=== PATIENT | female | born 1985 | race Caucasian/White ===

== ENCOUNTER 2024-10-02 09:45 | Inpatient (IN) | payer SELFPAY ==
[2024-10-02] VITALS (35 sets, daily range): BP systolic 156–226; BP diastolic 104–158; PULSE 85–133; RESP 8–33; TEMP 36.6–36.9; O2SAT 94–100; BMI 30.3
--- NOTE | 2024-10-02 10:10 | EKG_ITS ---
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
--- NOTE | 2024-10-02 10:10 | EDRME_ITS ---
Rapid Medical Screening Exam [facility] Arrival date/time: 10/02/24 09:45 CC: Hypertension HPI ongoing for years but has never taken any medication consistently forward last time she remembers she took hydrochlorothiazide low- dose intermittently. Patient denies headache blurred vision floaters seeing spots nausea vomiting shortness of breath or chest pain. Chief Complaint: General Adult/Misc Complain Time Seen by Provider: 10/02/24 10:05
[2024-10-02 10:51] LABS: Basophils # (Auto) 0.0 Thou/mm3 (0.0-0.2); Basophils % (Auto) 0 % (0-2.5); Eosinophils # (Auto) 0.0 Thou/mm3 (0.0-0.5); Eosinophils % (Auto) 0 % (0-10); Hematocrit 48.9 % (36.0-46.0); Hemoglobin 16.7 g/dL (12.0-16.0); Immature Granulocytes Auto 0.02 Thou/mm3 (0.00-0.00); Lymphocytes # (Auto) 1.9 Thou/mm3 (1.0-4.8); Lymphocytes % (Auto) 18 % (10-50); Mean Corpuscular HGB Conc 34.2 g/dl (31.0-37.0); Mean Corpuscular Hemoglobin 29.0 pg (25.0-35.0); Mean Corpuscular Volume 85 fL (80-100); Monocytes # (Auto) 0.4 Thou/mm3 (0.0-0.8); Monocytes % (Auto) 4 % (0-12); Neutrophils # (Auto) 8.0 Thou/mm3 (1.8-7.7); Neutrophils % (Auto) 77 % (37-80); Nucleated Red Blood Cell # 0.00 Thou/mm3 (0.00-0.00); Nucleated Red Blood Cell % 0 /100 WBC (0); Platelet Count 337 Thou/mm3 (140-440); RDW Standard Deviation 37.7 fL (36.4-46.3); Red Blood Count 5.76 Miln/mm3 (4.00-5.20); White Blood Count 10.3 Thou/mm3 (3.6-11.0)
[2024-10-02 11:02] LABS: INR 1.0 (0.9-1.3); Partial Thromboplastin Time 27.0 Seconds (22.0-36.0); Prothrombin Time 11.4 Seconds (9.0-12.2)
[2024-10-02 11:04] LABS: Collection Type, Urine Clean Catch
[2024-10-02 11:07] LABS: Alanine Aminotransferase 25 U/L (10-49); Albumin, Serum 5.3 gm/dL (3.5-5.0); Albumin/Globulin Ratio 1.8 (1.2-2.2); Alkaline Phosphatase 56 U/L (46-116); Anion Gap 11 (7-16); Aspartate Amino Transferase 23 U/L (0-34); BUN/Creatinine Ratio 9 Ratio (12-20); Bilirubin,Total 0.5 mg/dL (0.3-1.2); Blood Urea Nitrogen 7 mg/dL (9-23); Calcium 10.4 mg/dL (8.3-10.6); Calcium (Corrected) 10.4 mg/dL (8.5-10.1); Carbon Dioxide 24.6 mMol/L (20.0-31.0); Chloride 100 mMol/L (98-107); Creatinine (Component) 0.8 mg/dL (0.6-1.3); Estimated Creatinine Clearance 102.8 mL/min (>60); Globulin 2.9 gm/dL (2.3-3.5); Glucose 132 mg/dL (74-106); LDH (Lactate Dehydrogenase) 207 U/L (120-246); Magnesium 2.0 mg/dL (1.6-2.6); Osmolality,Calculated 271 (275-295); Potassium 3.6 mMol/L (3.4-5.1); Sodium 136 mMol/L (136-145); Total Protein 8.2 gm/dL (5.7-8.2); Troponin I < 0.020 ng/mL (0.0-0.045); eGFR > 60 See Note
[2024-10-02 11:16] LABS: B-Type Natriuretic Peptide 26 pg/mL (0-100)
[2024-10-02 11:18] LABS: Bilirubin,Urine Negative (Negative); Blood,Urine 3+ (Negative); Clarity,Urine Turbid (Clear/Hazy); Color,Urine Yellow (Lt Yel-Yel); Glucose, Urine Trace (Negative); Hyaline Casts,Urine 1 /hpf (0-1); Ketones,Urine 1+ (Negative); Leukocyte Esterase,Urine Negative (Negative); Nitrite,Urine Negative (Negative); PH,Urine 5.5 (5.0-7.0); Protein,Urine 1+ (Neg - Trace); RBC,Urine 698 /hpf (0-3); Specific Gravity,Urine 1.029 (1.001-1.035); Squamous Epithelial Cell,Urine 3 /hpf (0-5); Urobilinogen,Urine Negative mg/dL (0.0-1.0); WBC,Urine 5 /hpf (0-5)
[2024-10-02 11:47] LABS: Amphetamine/Methamp Scrn,U Negative (Negative); Barbiturate Screen,Urine Negative (Negative); Benzodiazepines Screen,Urine Negative (Negative); Benzoylecgonine Screen, Ur Negative (Negative); Fentanyl Screen,Urine Positive (Negative); Opiate Screen,Urine Negative (Negative); THC Screen,Urine Negative (Negative)
--- NOTE | 2024-10-02 15:28 | PD.EDADULT ---
ED General RME/HPI General Chief complaint: General Adult/Misc Complain Stated complaint: HIGH BLOOD PRESSURE Time Seen by Provider: 10/02/24 10:05 Arrival date/time: 10/02/24 09:45 RME / HPI RME / HPI narrative: 10/02/24 09:45 CC: Hypertension HPI ongoing for years but has never taken any medication consistently forward last time she remembers she took hydrochlorothiazide low-dose intermittently. Patient denies headache blurred vision floaters seeing spots nausea vomiting shortness of breath or chest pain. 39-year-old female with no relevant past medical history comes into the ED with chief complaint of high blood pressure. Patient states that she has had blood pressure in the past and every time that she goes to the dentist they told her that she has high blood pressure. Patient states that she has not seen a primary care physician in about 10 years and that she was recently prescribed nifedipine ER 30 mg which she had not been taking previously. She mention also that she took 1 dose of the nifedipine yesterday when her blood pressure was high, but it did not help. She also mentioned that at the house her blood pressure ranges in 150s over 90s to 100. She denies having any chest pain, shortness of breath, unintentional weight loss, weight gain, fevers, chills, diarrhea, burning sensation urination, headaches, visual disturbances, or heat or cold intolerance. Patient does state that she has a family history of thyroid issues including her sister and mother. Admits smoking (trying to quit), denies any alcohol Initially denied having any drug use, but UA did come back positive for fentanyl and went spoke again with patient she did reveal that she had been having substance issues and she has been taking fentanyl, unprescribed, but is trying to quit and would like to seek help. Related Data Previous Rx's ?Medication ?Instructions ?Recorded ciprofloxacin HCl 500 mg tablet 500 mg PO BID #14 tabs 07/11/23 (Cipro) nifedipine 30 mg tablet,extended 30 mg PO QDAY #30 tabs 07/11/23 release 24 hr (Procardia XL) Allergies Allergy/AdvReac Type Severity Reaction Status Date / Time Penicillins Allergy Mild Rash Verified 10/02/24 09:46 povidone Allergy Mild BLISTERS Verified 10/02/24 09:46 Review of Systems Review of Systems Systems Reviewed: All systems reviewed, normal except as documented Past Medical History Past Medical History Comments PMH COMMENT: PMH: None Social Hx: Admits smoking, fentanyl use, denies any alcohol FMH: Thyroid issues in mother and sister ED Exam Narrative Physical exam: Gen: A&O X 3, NAD HEENT: NCAT, EOMI, Pupils reactive GABRIEL, not icteric. External ears normal. No rhinorrhea. Moist mucous membranes. Neck: Supple, full range of motion, no observable masses, No meningeal sign. Lungs: No Respiratory distress, clear bilateral. CV: RRR, no murmurs. Abdomen: Soft, nondistended, No rebound tenderness. MSK: No joint swelling, no redness, peripheral pulses presents, lumbar with no edema. Skin: No rashes, petechiae, lesions.. Neuro: No focal neurological deficits appreciated, sensory and motor intact. Psych: Cooperative, appropriate mood and effect, but anxious appearing Course Quality Measures none Orders Category Date Time Status COVID-19 Screening Questionnaire NOW Care 10/02/24 18:31 Active Hot Packer Q4H START 00 Care 10/02/24 15:40 Active Continuous Pulse Oximetry NOW Care 10/02/24 15:40 Completed Decision to Admit X1 Care 10/02/24 18:31 Active EKG (ED ONLY) *Do not use* NOW Care 10/02/24 10:10 Completed EKG (ED Only) Stat Exams 10/02/24 10:10 Draft B-Type Natriuretic Peptide Stat Lab 10/02/24 10:37 Completed CBC Stat Lab 10/02/24 10:37 Completed Comprehensive Metabolic Panel Stat Lab 10/02/24 10:37 Completed Drug Screen,Urine Stat Lab 10/02/24 10:53 Completed Free T4 (Free Thyroxine) Stat Lab 10/02/24 15:03 Completed LDH (Lactate Dehydrogenase) Stat Lab 10/02/24 10:37 Completed Magnesium Stat Lab 10/02/24 10:37 Completed Partial Thromboplastin Time Stat Lab 10/02/24 10:37 Completed Prothrombin Time with INR Stat Lab 10/02/24 10:37 Completed Thyroid Stimulating Hormone Stat Lab 10/02/24 15:03 Completed Troponin I Stat Lab 10/02/24 10:37 Completed UA [Urinalysis] Stat Lab 10/02/24 16:05 Completed Urinalysis Stat Lab 10/02/24 10:53 Completed Labetalol IV [Trandate IV] Med 10/02/24 16:14 Discontinued 15 mg IVP X1 ONE Labetalol IV [Trandate IV] Med 10/02/24 16:56 Discontinued 20 mg IVP X1 ONE Labetalol IV [Trandate IV] Med 10/02/24 15:39 Discontinued 5 mg IVP X1 ONE Nicardipine/Ns 20Mg Ivpb [Cardene Ivpb] Med 10/02/24 18:30 Active 20 mg in 200 ml IV 5 mg/hr Sodium Chloride 0.9% 1000 ml [Ns] 1,000 ml Med 10/02/24 16:21 Discontinued IV 999 mls/hr cloNIDine HCL [Catapres] Med 10/02/24 18:30 Discontinued 0.1 mg PO X1 ONE Referral Sales And Service Agent NOW SS 10/02/24 15:40 Active Vital Signs Vital signs: Vital Signs Temperature 98.0 F 10/02/24 10:13 Pulse Rate 99 10/02/24 10:13 Respiratory Rate 19 10/02/24 10:13 Blood Pressure 218/113 H 10/02/24 10:13 Pulse Oximetry (%) 98 10/02/24 10:13 Oxygen Delivery Method Room Air 10/02/24 10:13 Discharge Plan Plan Patient Disposition: Admit Acute Care w/in Hospital Prescriptions/Referrals Prescriptions/Med Rec: No Action ciprofloxacin HCl [Cipro] 500 mg tablet 500 mg PO BID Qty: 14 0RF nifedipine [Procardia XL] 30 mg tablet extended release 24hr 30 mg PO QDAY Qty: 30 0RF Referrals: Medardo Don MD [Primary Care Provider] - In 1 week Problem List Clinical Impression: Hypertensive urgency Patient/Caregiver Discharge Instructions Print Language: Chinese Stand Alone Forms: Margarita Award Info., Patient Portal Info Letter MD Attestation Attestation I, Moni Lowry MD, have reviewed the history, exam, and assessment of the patient. I have evaluated the patient independently and agree with the plan of care documented by [Dr. Veliz]. All diagnostic studies were reviewed and discussed. I confirm the diagnosis as documented by the Resident. I was present during the Medical Decision Making for this patient. The patient's plan of care was created between myself and the Resident and consistent with our discussion of the patient's case. MDM Narrative [facility] hospital course: Patient was seen evaluated upon arrival by myself. Diagnostic labs and imaging were reviewed. Patient's blood work was fairly unremarkable except for the UA that was positive for RBCs, but patient is currently on menstrual period. Patient's U tox was also positive for fentanyl. Patient stated that she would like resources to help with her substance use therefore referred to social media intern. Gave labetalol IV 5 mg x 1 for blood pressure. Ordered initially labetalol 5 mg IV x 1 which did not lower patient's blood pressure then ordered 15 labetalol IV x 1 and patient's blood pressure still remain in the 230s or 120s. Patient remained asymptomatic, but given her high blood pressure again repeated a dose of labetalol 20 mg x 1. 18: 30: Spoke with ICU for need of nicardipine drip as BP still in the 210s over 110s and admission for ICU. ICU languages and literature instructor will see the patient for admission. Will start nicardipine drip with a goal of 180 systolic blood pressure for now and clonidine 0.1 p.o. x 1 as per ICU languages and literature instructor. Case disclosed with Attending Dr. Alen Curtis PGY Disclaimer: Even though this this note was dictated by speech recognition and even though it was carefully revised there may still be minor errors in lining stuffer due to voice recognition software. Medication Administration(s) Medication Administration History Nicardipine/Sodium Chloride (Cardene Ivpb) 20 mg in 200 mls @ 50 mls/hr IV .Q4H PRN; Protocol PRN Reason: PER PROTOCOL Stop: 11/01/24 18:29 Discontinued Medications Clonidine (Clonidine Hcl 0.1 Mg Tablet) 0.1 mg PO X1 ONE Stop: 10/02/24 18:31 Sodium Chloride (Ns) 1,000 mls @ 999 mls/hr IV .Q1H1M ONE Stop: 10/02/24 17:21 Last Admin: 10/02/24 16:24 Dose: Not Given Documented By: GM Non-Admin Reason: Cancelled by Provider Labetalol HCl (Labetalol Inj 5 Mg/Ml Vial 20 Ml) 5 mg IVP X1 ONE Stop: 10/02/24 15:40 Last Admin: 10/02/24 15:50 Dose: 5 mg Documented By: Labetalol HCl (Labetalol Inj 5 Mg/Ml Vial 20 Ml) 15 mg IVP X1 ONE Stop: 10/02/24 16:15 Last Admin: 10/02/24 16:27 Dose: 15 mg Documented By: HARDEEP Comments: CLARIFIED WITH DR. VELIZ ON DOSE Labetalol HCl (Labetalol Inj 5 Mg/Ml Vial 20 Ml) 20 mg IVP X1 ONE Stop: 10/02/24 16:57 Last Admin: 10/02/24 17:32 Dose: 20 mg Documented By: HARDEEP
[2024-10-02] MEDS: LABETALOL INJ 5 MG/ML VIAL 20 ML IVP (15:50)
[2024-10-02 15:57] LABS: Free T4 (Free Thyroxine) 1.33 ng/dL (0.89-1.76); Thyroid Stimulating Hormone 0.79 uIU/mL (0.55-4.78)
[2024-10-02 16:25] LABS: Collection Type, Urine Voided
[2024-10-02] MEDS: LABETALOL INJ 5 MG/ML VIAL 20 ML 15 MG IVP (16:27)
--- NOTE | 2024-10-02 16:31 | PC.NURSE ---
PT GIVEN 1L OF WATER VIA WATER CONTAINER CUP, PER DR. VELIZ.
[2024-10-02 16:43] LABS: Bacteria,Urine Rare; Bilirubin,Urine Negative (Negative); Blood,Urine 3+ (Negative); Clarity,Urine Clear (Clear/Hazy); Glucose, Urine Negative (Negative); Ketones,Urine 1+ (Negative); Leukocyte Esterase,Urine Positive (Negative); Nitrite,Urine Negative (Negative); PH,Urine 6.0 (5.0-7.0); Protein,Urine Trace (Neg - Trace); RBC,Urine 711 /hpf (0-3); Specific Gravity,Urine 1.016 (1.001-1.035); Squamous Epithelial Cell,Urine 3 /hpf (0-5); Urobilinogen,Urine Negative mg/dL (0.0-1.0); WBC,Urine 20 /hpf (0-5)
[2024-10-02 16:47] LABS: Color,Urine Lt-Orange (Lt Yel-Yel)
[2024-10-02] MEDS: LABETALOL INJ 5 MG/ML VIAL 20 ML 20 MG IVP (17:32)
--- NOTE | 2024-10-02 18:03 | PC.CC ---
ED Interpreter received referral for Pt requesting resources for substance abuse treatment. Family Resource Specialist engaged Pt at bedside and provide local community substance abuse resources and education for Pt. ED physician was notified and updated.
--- NOTE | 2024-10-02 19:09 | PC.CC ---
Moni Jalloh is a 39-year-old female admitted for High Blood Pressure. In House Counsel made contact with Pt at bedside to complete initial and discuss discharge disposition. Role and reason for the contact was explained to Pt. Demographic information was verified. Pt identified her Mother Tricia Jalloh [phone] as surrogate decision maker. Pt is independent with all ADLs and no DME. Pt?[facility] [place] [facility] [address] . PCP is JOEY. At time of discharge patient will return home, family will provide transportation. Pt reports wanting substance abuse support. Discharge Plan: Home Next of Kin: Mother Tricia Jalloh [phone] PCP: JOEY
[2024-10-02] MEDS: NICARDIPINE/NS 20MG IVPB 20 MG/200 ML BAG 50 MG IV (19:18)
--- NOTE | 2024-10-02 20:51 | ESHP_ITS ---
<Statement entered by Hugh Wood MD - 10/03/24 07:48> I have discussed and was present for the essential components of the history, physical examination, diagnosis, and treatment plan with the resident. I agree with the patient's care as documented by the resident and amended herein by me. Hugh Wood MD FACP. Documentation for date of: 10/02/24 HPI History of Present Illness Chief complaint: Elevated BP History of present illness: Patient is a 39-year-old female with past medical history significant for uncontrolled hypertension complaining of elevated blood pressure and heart rate in the 120s since early this morning. Patient states that she took nifedipine 30 mg for the first time at 2:30 PM on 10/01/2024, and immediately turned red and felt hot. Patient states that she took the nifedipine at 2:30 PM when her blood pressure was 200/110, but immediately dropped her blood pressure to 158/86. Patient denied feeling dizzy, having any headaches, nosebleeds, blurry vision or any loss of vision, chest pain, shortness of breath, weakness or difficulty speaking. Patient is currently on her period has any other urinary frequency or symptoms. In addition, patient takes fentanyl for about 2 years, however has been trying to self wean. Patient takes 6 small pills daily for the last 2 years, however did decrease to 1 pill over the last 4 to 6 weeks. Patient has not seen a primary care doctor over the last 10 years. Patient's blood pressure range usually is 158-164 over 90s to 100s. Patient's last meal was yesterday at dinner, and had an apple at 10 AM this morning. Of note, patient does get dizzy and premenstrual cramps during her ovulation 2 weeks ago, and felt more dizzy than usual this month than usual. Patient was on Vicodin as needed for her right ankle surgeries, and would use it occasionally to help her sleep, however could not wean off of the Vicodin, and started taking fentanyl daily for the last 2 years. ED course: Patient was given IV 40 mg of hydralazine, and clonidine 0.1 mg p.o. UA positive for leukocyte esterase, 3+ blood and 1+ ketones, however patient is on her menstrual period. Patient was started on IV nicardipine drip and admitted to ICU for further management. Review of Systems Review of Systems Systems Reviewed: All systems reviewed, normal except as documented Past Medical History Past Medical History Comments PMH COMMENT: Past medical history: Uncontrolled hypertension Past surgical history: 2 right ankle surgeries x 5 years ago Social history: Patient smokes about 1 pack every 3 days for the last 8 years, about 2.52 pack years, however has been trying to wean down, currently on 5 cigarettes over the last 2 weeks, denies any alcohol use history Allergies: Penicillin and Betadine, patient gets rashes immediately after Medications: First time she took nifedipine was yesterday at 2:30 PM, 10/01/2024, and has been taking fentanyl, self-medicating, currently 1 small pill daily Family history: Patient's grandfather had a heart attack in his 60s and cancer. Denies any diabetes or strokes Exam Vital Signs Temp Pulse Resp BP Pulse Ox O2 Del Method 98.4 F 96 13 203/156 H 99 Room Air 10/02/24 18:33 10/02/24 19:28 10/02/24 18:33 10/02/24 19:28 10/02/24 18:33 10/02/24 18:33 Narrative Exam General Appearance: Pt in NAD laying comfortably in bed. Patient appears flushed in her cheeks and upper neck. HEENT: NC/AT, no scleral icterus, no conjunctival pallor, MMM Lungs: CTAB, no wheezes or crackles appreciated CVS: Tachycardic, S1/S2 heard, no murmurs or rubs appreciated ABD: Soft, non-tender, non-distended, BS + in all 4 quadrants EXT: no deformity/edema/lesions/cyanosis/clubbing, radial pulses 2+ BL, DP pulses 2 + BL, except for old right ankle scars SKIN: Skin exam normal without any rashes. Neuro: A&O x 3. No gross neurological deficits. Motor and sensory grossly intact in B/L UL and LL. Psych: Appropriate mood and affect Results: Labs 10/02/24 10:37 10/02/24 10:37 Labs: Short CBC 10/02/24 Range/Units 10:37 WBC 10.3 (3.6-11.0) Thou/mm3 Hgb 16.7 H (12.0-16.0) g/dL Hct 48.9 H (36.0-46.0) % Plt Count 337 (140-440) Thou/mm3 BMP 10/02/24 10:37 Sodium 136 Potassium 3.6 Chloride 100 Carbon Dioxide 24.6 BUN 7 L Creatinine 0.8 Glucose 132 H Calcium 10.4 Cardiac Enzymes 10/02/24 Range/Units 10:37 Troponin I < 0.020 (0.0-0.045) ng/mL Liver Function 10/02/24 Range/Units 10:37 Total Bilirubin 0.5 (0.3-1.2) mg/dL AST 23 (0-34) U/L ALT 25 (10-49) U/L Alkaline Phosphatase 56 (46-116) U/L Albumin 5.3 H (3.5-5.0) gm/dL Urine 10/02/24 10/02/24 Range/Units 10:53 16:05 Urine Color Yellow Lt-[place] A (Lt Yel-Yel) Urine Clarity Turbid A Clear (Clear/Hazy) Urine pH 5.5 6.0 (5.0-7.0) Ur Specific [place] 1.029 1.016 (1.001-1.035) Urine Protein 1+ A Trace (Neg - Trace) Urine Glucose (UA) Trace Negative (Negative) Quality Measures Quality Measures none Medications Home Medications and Allergies Allergies Allergy/AdvReac Type Severity Reaction Status Date / Time Penicillins Allergy Mild Rash Verified 10/02/24 09:46 povidone Allergy Mild BLISTERS Verified 10/02/24 09:46 Visit Medications Acetaminophen (Acetaminophen 325 Mg Tablet) 650 mg PO Q6H PRN PRN Reason: Fever >100.4 or Pain 1-3 Stop: 11/01/24 20:42 Heparin Sodium (Porcine) (Heparin Sod Inj 5000 Unit/Ml Vial) 5,000 unit SC Q8HR [facility] Stop: 10/16/24 21:59 Nicardipine/Sodium Chloride (Cardene Ivpb) 20 mg in 200 mls @ 50 mls/hr IV .Q4H PRN; Protocol PRN Reason: PER PROTOCOL Stop: 11/01/24 18:29 Last Titration: 10/02/24 20:17 Dose: 2.5 mg/hr, 25 mls/hr Ondansetron HCl (Ondansetron Inj 2 Mg/Ml Inj 2 Ml) 4 mg IVP Q6H PRN; Protocol PRN Reason: NAUSEA OR VOMITING Stop: 11/01/24 20:42 Discontinued Medications Clonidine (Clonidine Hcl 0.1 Mg Tablet) 0.1 mg PO X1 ONE Stop: 10/02/24 18:31 Last Admin: 10/02/24 19:28 Dose: 0.1 mg Sodium Chloride (Ns) 1,000 mls @ 999 mls/hr IV .Q1H1M ONE Stop: 10/02/24 17:21 Last Admin: 10/02/24 16:24 Dose: Not Given Labetalol HCl (Labetalol Inj 5 Mg/Ml Vial 20 Ml) 5 mg IVP X1 ONE Stop: 10/02/24 15:40 Last Admin: 10/02/24 15:50 Dose: 5 mg Labetalol HCl (Labetalol Inj 5 Mg/Ml Vial 20 Ml) 15 mg IVP X1 ONE Stop: 10/02/24 16:15 Last Admin: 10/02/24 16:27 Dose: 15 mg Labetalol HCl (Labetalol Inj 5 Mg/Ml Vial 20 Ml) 20 mg IVP X1 ONE Stop: 10/02/24 16:57 Last Admin: 10/02/24 17:32 Dose: 20 mg Assessment & Plan Plan Patient is a 39-year-old female with past medical history significant for uncontrolled hypertension coming in with elevated blood pressure and admitted for hypertensive urgency. NEURO No active issues CARDIO #Hypertensive urgency Patient presented with a blood pressure of 218/113. Patient was given IV 40 labetalol and clonidine 0.1 p.o. x 1 with now significant improvement in blood pressure. Patient is on home nifedipine, but only has taken it once, on 10/01/2024. Patient denies any symptoms of headache, chest pain, dizziness, blurry vision, suggesting no signs of endorgan damage. Patient also has been self weaning with fentanyl pills, used to take small pills, down to 1 small pill in the last 6 weeks. Patient states that her flushing since taking her nifedipine dose yesterday morning has resolved. Patient does have baseline redness in her cheeks and neck. ? Nicardipine drip, with goal systolic blood pressure of 180, with MAP around 100-110 in the next 24 hours, until 10AM tmw, 10/03/24 ? Transition to to p.o. meds in a.m. if systolic blood pressure is well under goal of 180 ? Patient would benefit from home antihypertensives such as LALO inhibitor/ARB's and strongly outpatient follow-up with primary care doctor ? 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 Patient is currently taking fentanyl daily, and last dose was this morning at 10:00. UA positive for fentanyl. ? Patient would benefit from rehab status postdischarge to help with resources and medication for withdrawal symptoms ? Monitor for any opiate withdrawal symptoms Health Maintenance: DVT prophylaxis: Heparin SC Diet: Cardiac Velazquez: No Lines: PIV Drips: Nicardipine, currently turned off CODE STATUS: Full code Disposition: Admitted to ICU for HTN urgency requiring IV Nicardipine Patient's plan and care discussed with my attending, Dr. Nina Christensen MD PGY-3
--- NOTE | 2024-10-02 23:00 | PC.NURSE ---
Notified Provider Dr. Colon regarding b/p -orders to keep systolic below 180
[2024-10-02] MEDS: HEPARIN SOD INJ 5000 UNIT/ML VIAL SC (23:13)
[2024-10-03] VITALS (61 sets, daily range): BP systolic 130–200; BP diastolic 86–137; PULSE 70–140; RESP 8–23; TEMP 36.3–37; O2SAT 94–100
[2024-10-03] MEDS: NICARDIPINE/NS 20MG IVPB 20 MG/200 ML BAG 50 MG IV (04:21)
[2024-10-03 05:10] LABS: Basophils # (Auto) 0.0 Thou/mm3 (0.0-0.2); Basophils % (Auto) 0 % (0-2.5); Eosinophils # (Auto) 0.0 Thou/mm3 (0.0-0.5); Eosinophils % (Auto) 0 % (0-10); Hematocrit 42.6 % (36.0-46.0); Hemoglobin 14.2 g/dL (12.0-16.0); Immature Granulocytes Auto 0.02 Thou/mm3 (0.00-0.00); Lymphocytes # (Auto) 2.9 Thou/mm3 (1.0-4.8); Lymphocytes % (Auto) 30 % (10-50); Mean Corpuscular HGB Conc 33.3 g/dl (31.0-37.0); Mean Corpuscular Hemoglobin 28.8 pg (25.0-35.0); Mean Corpuscular Volume 86 fL (80-100); Monocytes # (Auto) 0.8 Thou/mm3 (0.0-0.8); Monocytes % (Auto) 8 % (0-12); Neutrophils # (Auto) 5.9 Thou/mm3 (1.8-7.7); Neutrophils % (Auto) 61 % (37-80); Nucleated Red Blood Cell # 0.00 Thou/mm3 (0.00-0.00); Nucleated Red Blood Cell % 0 /100 WBC (0); Platelet Count 283 Thou/mm3 (140-440); RDW Standard Deviation 39.7 fL (36.4-46.3); Red Blood Count 4.93 Miln/mm3 (4.00-5.20); White Blood Count 9.7 Thou/mm3 (3.6-11.0)
[2024-10-03 05:33] LABS: Alanine Aminotransferase 15 U/L (10-49); Albumin, Serum 4.3 gm/dL (3.5-5.0); Albumin/Globulin Ratio 1.8 (1.2-2.2); Alkaline Phosphatase 44 U/L (46-116); Anion Gap 11 (7-16); Aspartate Amino Transferase 17 U/L (0-34); BUN/Creatinine Ratio 15 Ratio (12-20); Bilirubin,Total 0.5 mg/dL (0.3-1.2); Blood Urea Nitrogen 9 mg/dL (9-23); Calcium 9.9 mg/dL (8.3-10.6); Calcium (Corrected) 9.9 mg/dL (8.5-10.1); Carbon Dioxide 28.4 mMol/L (20.0-31.0); Chloride 102 mMol/L (98-107); Creatinine (Component) 0.6 mg/dL (0.6-1.3); Estimated Creatinine Clearance 137.1 mL/min (>60); Globulin 2.4 gm/dL (2.3-3.5); Glucose 89 mg/dL (74-106); Magnesium 1.8 mg/dL (1.6-2.6); Osmolality,Calculated 278 (275-295); Potassium 3.4 mMol/L (3.4-5.1); Sodium 141 mMol/L (136-145); Total Protein 6.7 gm/dL (5.7-8.2); eGFR > 60 See Note
[2024-10-03] MEDS: NICARDIPINE/NS 20MG IVPB 20 MG/200 ML BAG 75 MG IV (06:19)
[2024-10-03] MEDS: HEPARIN SOD INJ 5000 UNIT/ML VIAL SC (06:21)
[2024-10-03] MEDS: LABETALOL INJ 5 MG/ML VIAL 20 ML 20 MG IVP (08:14)
[2024-10-03] MEDS: NICARDIPINE/NS 20MG IVPB 20 MG/200 ML BAG 30 MG IV (10:54)
--- NOTE | 2024-10-03 14:43 | XR_ITS ---
Examination: Retroperitoneal ultrasound, complete Technique: Multiple high resolution grayscale images of the retroperitoneum obtained, including kidneys and bladder. Exam date and time:October 03, 2024 1500 hours INDICATIONS: Onset hypertension beginning 2 years ago. FINDINGS: Right kidney 11.2 cm and a port is 1.6 cm Left kidney 11.9 cm cortex 1.9 cm No renal calculi, no hydronephrosis No bladder mass or bladder calculi, bladder prevoid volume 138 cc IMPRESSION: No hydronephrosis or renal calculi
--- NOTE | 2024-10-03 14:49 | PD.RESPRO ---
Documentation for date of: 10/03/24 Subjective Subjective Interval history: Patient with history of fentanyl use disorder currently attempting to quit seen in ICU came in due to elevated BP (218/113) which dropped after taking nifedipine however it caused rebound HR and facial flushing. She denies any and all symptoms of HTN. She was given nicardipine, HCTZ, and lisinopril to lower BP as well as losartan and amlodipine. Her BPs are now 152/102. Upon initial evaluation patient appears in no distress, but does talk rapidly. She reports coming off of fentanyl since admission but feels no discomfort or distress about it. She also reports no symptoms of HTN such as ringing in her ears, blood in urine, headaches, visual changes. Exam Vital Signs Temp Pulse Resp BP Pulse Ox O2 Del Method FiO2 97.9 F 84 17 151/92 H 98 Mechanical Ventilation 45 10/03/24 12:00 10/03/24 14:03 10/03/24 14:03 10/03/24 14:03 10/03/24 14:03 10/03/24 12:00 10/03/24 12:00 Narrative Exam General: The patient is not in acute distress and is lying comfortably in bed. Her cheeks and upper neck appear flushed. HEENT: Normocephalic, atraumatic. No scleral icterus or conjunctival pallor. Mucous membranes are moist. Lungs: Clear to auscultation bilaterally. No wheezes or crackles. Cardiovascular: Normal S1/S2 heart sounds. No murmurs or rubs. Abdomen: Soft, non-tender, non-distended, with bowel sounds present in all four quadrants. Extremities: No deformity, edema, lesions, cyanosis, or clubbing. Radial and dorsalis pedis pulses are 2+ bilaterally, with the exception of old scars on the right ankle. Skin: No rashes or other abnormalities. Neurological: Alert and oriented to person, place, and time. No gross neurological deficits. Motor and sensory function are grossly intact in both upper and lower extremities. Psychiatric: Mood and affect are appropriate. Objective Labs 10/04/24 05:16 10/04/24 05:16 Labs: Laboratory Results - last 24 hr 10/02/24 10/02/24 10/02/24 10:37 15:03 16:05 WBC RBC Hgb Hct MCV MCH MCHC RDW Std Deviation Plt Count Neut % (Auto) Lymph % (Auto) [place] % (Auto) Eos % (Auto) Baso % (Auto) Neut # (Auto) Lymph # (Auto) [place] # (Auto) Eos # (Auto) Baso # (Auto) Immature Gran # (Auto) Absolute Nucleated RBC Immature Gran % Nucleated RBC % Sodium Potassium Chloride Carbon Dioxide Anion Gap BUN Creatinine Estim Creat Clear Calc eGFR BUN/Creatinine Ratio Glucose Calculated Osmolality Calcium Corrected Calcium Magnesium Total Bilirubin AST ALT Alkaline Phosphatase Total Protein Albumin Globulin Albumin/Globulin Ratio TSH Cancelled 0.79 Free T4 Cancelled 1.33 Ur Collection Type Voided Urine Color [place] A Urine Clarity Clear Urine pH 6.0 Ur Specific [place] 1.016 Urine Protein Trace Urine Glucose (UA) Negative Urine Ketones 1+ A Urine Blood 3+ A Urine Nitrite Negative Urine Bilirubin Negative Urine Urobilinogen (Auto) Negative Ur Leukocyte Esterase Positive Urine RBC 711 H Urine WBC 20 H Ur Squamous Epith Cells 3 Urine Bacteria Rare 10/03/24 04:20 WBC 9.7 RBC 4.93 Hgb 14.2 D Hct 42.6 MCV 86 MCH 28.8 MCHC 33.3 RDW Std Deviation 39.7 Plt Count 283 D Neut % (Auto) 61 Lymph % (Auto) 30 [place] % (Auto) 8 Eos % (Auto) 0 Baso % (Auto) 0 Neut # (Auto) 5.9 Lymph # (Auto) 2.9 [place] # (Auto) 0.8 Eos # (Auto) 0.0 Baso # (Auto) 0.0 Immature Gran # (Auto) 0.02 H Absolute Nucleated RBC 0.00 Immature Gran % 0 Nucleated RBC % 0 Sodium 141 Potassium 3.4 Chloride 102 Carbon Dioxide 28.4 Anion Gap 11 BUN 9 Creatinine 0.6 Estim Creat Clear Calc 137.1 eGFR > 60 BUN/Creatinine Ratio 15 Glucose 89 Calculated Osmolality 278 Calcium 9.9 Corrected Calcium 9.9 Magnesium 1.8 Total Bilirubin 0.5 AST 17 ALT 15 Alkaline Phosphatase 44 L D Total Protein 6.7 Albumin 4.3 D Globulin 2.4 Albumin/Globulin Ratio 1.8 TSH Free T4 Ur Collection Type Urine Color Urine Clarity Urine pH Ur Specific [place] Urine Protein Urine Glucose (UA) Urine Ketones Urine Blood Urine Nitrite Urine Bilirubin Urine Urobilinogen (Auto) Ur Leukocyte Esterase Urine RBC Urine WBC Ur Squamous Epith Cells Urine Bacteria Quality Measures Quality Measures none Assessment & Plan Assessment Current Active Medications: Generic Name Dose Route Start Last Admin Trade Name Freq PRN Reason Stop Dose Admin Acetaminophen 650 mg 10/02/24 20:43 Acetaminophen 325 Mg Tablet PO 11/01/24 20:42 Q6H PRN Fever >100.4 or Pain 1-3 Heparin Sodium (Porcine) 5,000 unit 10/02/24 22:00 10/03/24 06:21 Heparin Sod Inj 5000 Unit/Ml Vial SC 10/16/24 21:59 5,000 unit Q8HR DOM Administration Nicardipine/Sodium Chloride 20 mg in 200 mls @ 50 mls/hr 10/02/24 18:30 10/03/24 11:05 Cardene Ivpb IV 11/01/24 18:29 0 mg/hr .Q4H PRN 0 mls/hr PER PROTOCOL Titration Protocol 5 MG/HR Magnesium Sulfate 2 gm in 50 mls @ 25 mls/hr 10/03/24 14:40 Magnesium Sulfate Ivpb IV 10/03/24 16:39 X1 ONE Nifedipine 30 mg 10/03/24 09:00 10/03/24 10:31 Nifedipine Xl 30 Mg Tabcr PO 11/02/24 08:59 Not Given QDAY DOM Ondansetron HCl 4 mg 10/02/24 20:43 Ondansetron Inj 2 Mg/Ml Inj 2 Ml IVP 11/01/24 20:42 Q6H PRN NAUSEA OR VOMITING Protocol Plan Summary: Patient is a 39-year-old female with past medical history significant for uncontrolled hypertension admitted to ICU for management of hypertensive urgency, has now been downgraded to floors for hypertensive work up. NEURO No active issues CARDIO #Hypertensive urgency The patient presented with a blood pressure of 218/113 mmHg. She reports taking her home nifedipine only once, the day of admission. The patient denies symptoms of headache, chest pain, dizziness, or blurry vision, which suggests no signs of end-organ damage. She has also been self-weaning off fentanyl pills, decreasing from small pills daily to one small pill in the last six weeks. Her facial flushing, which she noticed after taking nifedipine. She does have baseline redness in her cheeks and neck. Will monitor overnight without medication changes to evaluate if underlying hypertensive eitology or withdrawal HTN. Plan: - Nicardipine drip was discontinued today. - She received a one-time dose of hydrochlorothiazide 25 mg and lisinopril 20 mg, and her blood pressure improved. - Amlodipine 5 mg daily - Hydrochlorothiazide 25 mg daily - Losartan 50 mg twice daily - Hydralazine 25 mg PRN - Patient was counseled on the importance of medication compliance for her blood pressure, maintaining a low-salt diet, and increasing her activity level. - A resistant hypertension workup should be considered if her blood pressure remains elevated on these three antihypertensive medications. #Fentanyl use disorder The patient reports a two-year history of daily fentanyl use, which began after she was unable to wean off of as-needed Vicodin following previous right ankle surgeries. Her last dose of fentanyl was yesterday morning at 10:00. Her urine analysis (UA) was positive for fentanyl. Plan: - The patient would benefit from a referral to a rehabilitation program upon discharge to assist with resources and medication management for withdrawal symptoms. - Monitor closely for any signs or symptoms of opiate withdrawal. - Ativan PO for signs of w/drawal Health Maintenance: DVT prophylaxis: ENOXAPARIN Diet: Cardiac Lines: PIV CODE STATUS: Full code Disposition: Case discussed and patient seen with my attending Dr. Tru Nobles MD PGY-1 Attending Provider Attestation/Addendum I have examined the patient, reviewed labs and imaging findings, discussed the case with the resident(s), and reviewed entered orders. I agree with the plan of care as outlined in this note, with these additional summaries/recommendations: 39-year-old female with history of uncontrolled hypertension, whitecoat hypertension, substance use disorder currently self titrating off of fentanyl tablets admitted to ICU for hypertensive urgency requiring nicardipine drip now downgraded to floors. Patient has longstanding history of hypertension dating back to her 20s. She likely will require additional workup for secondary hypertension. For now, we will attempt to titrate blood pressure regimen with goal high normal blood pressure. Chago Ott MD
[2024-10-03] MEDS: Magnesium Sulfate 2 GM Ivpb 2 GM/50 ML BAG IV (14:50)
--- NOTE | 2024-10-03 15:29 | PD.RESPRO ---
Documentation for date of: 10/03/24 Subjective Subjective Interval history: 39-year-old female with a 10-year history of unmanaged hypertension presents with an elevated blood pressure and heart rate in the 120s, which she has experienced since yesterday. Her typical blood pressure range is 158-164/90-100 mmHg. Yesterday at 2:30 PM, she took nifedipine 30 mg for the first time for a blood pressure of 200/110 mmHg. She immediately experienced flushing and a warm sensation, and her blood pressure decreased to 158/86 mmHg. She denies any associated symptoms of dizziness, headache, blurry vision, chest pain, shortness of breath, or weakness. She reports a history of using fentanyl for two years and has been attempting to self-wean over the past 4-6 weeks, reducing her daily use from six pills to one. She is currently on her menstrual period. Interval History: 10/03/2024 Patient has been successfully taken off nicardipine drip for blood pressure control. Today she received hydrochlorothiazide 25 mg x 1 and lisinopril 20 mg x 1 and her blood pressure was brought down to 138/105. She has been started on 3 oral antihypertensives including hydrochlorothiazide 25 mg daily, losartan 50 mg p.o. twice daily, amlodipine 5 mg daily. Patient has been downgraded to the medical floor for management of ongoing issues. Exam Vital Signs Temp Pulse Resp BP Pulse Ox O2 Del Method FiO2 97.9 F 84 17 151/92 H 98 Mechanical Ventilation 45 10/03/24 12:00 10/03/24 14:03 10/03/24 14:03 10/03/24 14:03 10/03/24 14:03 10/03/24 12:00 10/03/24 12:00 Narrative Exam General: The patient is not in acute distress and is lying comfortably in bed. Her cheeks and upper neck appear flushed. HEENT: Normocephalic, atraumatic. No scleral icterus or conjunctival pallor. Mucous membranes are moist. Lungs: Clear to auscultation bilaterally. No wheezes or crackles. Cardiovascular: Normal S1/S2 heart sounds. No murmurs or rubs. Abdomen: Soft, non-tender, non-distended, with bowel sounds present in all four quadrants. Extremities: No deformity, edema, lesions, cyanosis, or clubbing. Radial and dorsalis pedis pulses are 2+ bilaterally, with the exception of old scars on the right ankle. Skin: No rashes or other abnormalities. Neurological: Alert and oriented to person, place, and time. No gross neurological deficits. Motor and sensory function are grossly intact in both upper and lower extremities. Psychiatric: Mood and affect are appropriate. Objective Labs 10/04/24 05:16 10/04/24 05:16 Labs: Laboratory Results - last 24 hr 10/02/24 10/02/24 10/02/24 10:37 15:03 16:05 WBC RBC Hgb Hct MCV MCH MCHC RDW Std Deviation Plt Count Neut % (Auto) Lymph % (Auto) [place] % (Auto) Eos % (Auto) Baso % (Auto) Neut # (Auto) Lymph # (Auto) [place] # (Auto) Eos # (Auto) Baso # (Auto) Immature Gran # (Auto) Absolute Nucleated RBC Immature Gran % Nucleated RBC % Sodium Potassium Chloride Carbon Dioxide Anion Gap BUN Creatinine Estim Creat Clear Calc eGFR BUN/Creatinine Ratio Glucose Calculated Osmolality Calcium Corrected Calcium Magnesium Total Bilirubin AST ALT Alkaline Phosphatase Total Protein Albumin Globulin Albumin/Globulin Ratio TSH Cancelled 0.79 Free T4 Cancelled 1.33 Ur Collection Type Voided Urine Color Lt-[place] A Urine Clarity Clear Urine pH 6.0 Ur Specific [place] 1.016 Urine Protein Trace Urine Glucose (UA) Negative Urine Ketones 1+ A Urine Blood 3+ A Urine Nitrite Negative Urine Bilirubin Negative Urine Urobilinogen (Auto) Negative Ur Leukocyte Esterase Positive Urine RBC 711 H Urine WBC 20 H Ur Squamous Epith Cells 3 Urine Bacteria Rare 10/03/24 04:20 WBC 9.7 RBC 4.93 Hgb 14.2 D Hct 42.6 MCV 86 MCH 28.8 MCHC 33.3 RDW Std Deviation 39.7 Plt Count 283 D Neut % (Auto) 61 Lymph % (Auto) 30 [place] % (Auto) 8 Eos % (Auto) 0 Baso % (Auto) 0 Neut # (Auto) 5.9 Lymph # (Auto) 2.9 [place] # (Auto) 0.8 Eos # (Auto) 0.0 Baso # (Auto) 0.0 Immature Gran # (Auto) 0.02 H Absolute Nucleated RBC 0.00 Immature Gran % 0 Nucleated RBC % 0 Sodium 141 Potassium 3.4 Chloride 102 Carbon Dioxide 28.4 Anion Gap 11 BUN 9 Creatinine 0.6 Estim Creat Clear Calc 137.1 eGFR > 60 BUN/Creatinine Ratio 15 Glucose 89 Calculated Osmolality 278 Calcium 9.9 Corrected Calcium 9.9 Magnesium 1.8 Total Bilirubin 0.5 AST 17 ALT 15 Alkaline Phosphatase 44 L D Total Protein 6.7 Albumin 4.3 D Globulin 2.4 Albumin/Globulin Ratio 1.8 TSH Free T4 Ur Collection Type Urine Color Urine Clarity Urine pH Ur Specific [place] Urine Protein Urine Glucose (UA) Urine Ketones Urine Blood Urine Nitrite Urine Bilirubin Urine Urobilinogen (Auto) Ur Leukocyte Esterase Urine RBC Urine WBC Ur Squamous Epith Cells Urine Bacteria Quality Measures Quality Measures none Assessment & Plan Assessment Current Active Medications: Generic Name Dose Route Start Last Admin Trade Name Freq PRN Reason Stop Dose Admin Acetaminophen 650 mg 10/02/24 20:43 Acetaminophen 325 Mg Tablet PO 11/01/24 20:42 Q6H PRN Fever >100.4 or Pain 1-3 Amlodipine Besylate 5 mg 10/04/24 09:00 Amlodipine Besylate 5 Mg Tablet PO 11/03/24 08:59 QDAY DOM Enoxaparin Sodium 40 mg 10/04/24 09:00 Enoxaparin Sod Inj 40 Mg/0.4 Ml Syringe SC 10/18/24 08:59 QDAY DOM Hydralazine HCl 25 mg 10/03/24 15:17 Hydralazine Hcl 25 Mg Tablet PO 11/02/24 21:59 TID PRN SBP > 160 Hydrochlorothiazide 25 mg 10/04/24 09:00 Hydrochlorothiazide 12.5 Mg Capsule PO 11/03/24 08:59 QDAY DOM Magnesium Sulfate 2 gm in 50 mls @ 25 mls/hr 10/03/24 14:40 10/03/24 14:50 Magnesium Sulfate Ivpb IV 10/03/24 16:39 25 mls/hr X1 ONE Administration Losartan Potassium 50 mg 10/03/24 21:00 Losartan Potassium 25 Mg Tablet PO 11/02/24 20:59 BID DOM Ondansetron HCl 4 mg 10/02/24 20:43 Ondansetron Inj 2 Mg/Ml Inj 2 Ml IVP 11/01/24 20:42 Q6H PRN NAUSEA OR VOMITING Protocol Plan Summary: Patient is a 39-year-old female with past medical history significant for uncontrolled hypertension admitted to ICU for management of hypertensive urgency. NEURO No active issues CARDIO #Hypertensive urgency The patient presented with a blood pressure of 218/113 mmHg. She reports taking her home nifedipine only once, yesterday morning. The patient denies symptoms of headache, chest pain, dizziness, or blurry vision, which suggests no signs of end-organ damage. She has also been self-weaning off fentanyl pills, decreasing from small pills daily to one small pill in the last six weeks. Her facial flushing, which she noticed after taking nifedipine yesterday. She does have baseline redness in her cheeks and neck. Plan: - Nicardipine drip was discontinued today. - She received a one-time dose of hydrochlorothiazide 25 mg and lisinopril 20 mg, and her blood pressure improved. - Amlodipine 5 mg daily - Hydrochlorothiazide 25 mg daily - Losartan 50 mg twice daily - Patient was counseled on the importance of medication compliance for her blood pressure, maintaining a low-salt diet, and increasing her activity level. - A resistant hypertension workup should be considered if her blood pressure remains elevated on these three antihypertensive medications. PULM: No active issues GI: No active issues RENAL: No active issues HEME/ONC No active issues ENDO: No active issues ID: No active issues MSK No active issues PSYCH #Fentanyl use diorder The patient reports a two-year history of daily fentanyl use, which began after she was unable to wean off of as-needed Vicodin following previous right ankle surgeries. Her last dose of fentanyl was yesterday morning at 10:00. Her urine analysis (UA) was positive for fentanyl. Plan: - The patient would benefit from a referral to a rehabilitation program upon discharge to assist with resources and medication management for withdrawal symptoms. - Monitor closely for any signs or symptoms of opiate withdrawal. Health Maintenance: DVT prophylaxis: ENOXAPARIN Diet: Cardiac Lines: PIV CODE STATUS: Full code Disposition: Patient transferred to the medical floor Case discussed with my attending Dr. Alen Workman MD PGY-1 Attending Provider Attestation/Addendum pt seen and examined with resident. In brief this is a 39yo F admitted to the ICU for HTN urgencey requiring nicardipine gtt. She was started on PO meds. She has a h/o HTN however has not been on meds at home. On exam she is AAOx4, nl body habitus, NAD, LCTAB, HRRR, abd s/nt/bs+, no focal deficits. She has been started on PO lisinopril and HCTZ. She was given IV labetalol and has been able to come off the nicardipine gtt. If unable to control BP on 2 meds may need additional workup for resistant hypertension. case d/w ICU team labs, imaging, records reivewed ~35min required for eval, exam, review, intervention, discussion and formulation of POC for this pt
[2024-10-03] MEDS: LOSARTAN POTASSIUM 25 MG TABLET 50 MG PO (20:08)
--- NOTE | 2024-10-03 20:40 | PC.NURSE ---
called Dr. Sousa regarding patient's BP of 162/107, HR of 71 SR at 1999. Patient has scheduled losartan which was given at 2007. To recheck patient's blood pressure in about an hor. Per doctor if blood pressure is still elevated, okay to give PRN hydralazine if SBP>160. No other new orders received.
[2024-10-04] VITALS (17 sets, daily range): BP systolic 135–182; BP diastolic 83–110; PULSE 62–95; RESP 13–23; TEMP 36.1–36.4; O2SAT 97–99
--- NOTE | 2024-10-04 05:32 | PC.NURSE ---
called Dr. Tate regarding patient's BP of 170/106, HR of 76, patient c/o feeling anxious, patient given PRN hydralazine PO 25 mg and ativan PO 0.5 mg, per doctor to recheck in about an hour. Patient is only feeling anious but no chest pain, headache dizziness. No other symptoms received.
--- NOTE | 2024-10-04 06:20 | PC.NURSE ---
called Dr. Tate regarding patient's BP current of 176/100, HR 74. Patient was given hydralazine PO 25 mg and ativan 0.5 mg PO at 0500, but BP is about the same as before taking medications. Per patient still feeling anxious about her BP being taken, and being in the hospital in general. Per doctor okay BP for now, no new orders received. recheck in about an hour.
[2024-10-04 06:28] LABS: Basophils # (Auto) 0.0 Thou/mm3 (0.0-0.2); Basophils % (Auto) 0 % (0-2.5); Eosinophils # (Auto) 0.0 Thou/mm3 (0.0-0.5); Eosinophils % (Auto) 0 % (0-10); Hematocrit 43.9 % (36.0-46.0); Hemoglobin 14.5 g/dL (12.0-16.0); Immature Granulocytes Auto 0.03 Thou/mm3 (0.00-0.00); Lymphocytes # (Auto) 2.5 Thou/mm3 (1.0-4.8); Lymphocytes % (Auto) 27 % (10-50); Mean Corpuscular HGB Conc 33.0 g/dl (31.0-37.0); Mean Corpuscular Hemoglobin 29.0 pg (25.0-35.0); Mean Corpuscular Volume 88 fL (80-100); Monocytes # (Auto) 0.6 Thou/mm3 (0.0-0.8); Monocytes % (Auto) 7 % (0-12); Neutrophils # (Auto) 6.1 Thou/mm3 (1.8-7.7); Neutrophils % (Auto) 66 % (37-80); Nucleated Red Blood Cell # 0.00 Thou/mm3 (0.00-0.00); Nucleated Red Blood Cell % 0 /100 WBC (0); Platelet Count 282 Thou/mm3 (140-440); RDW Standard Deviation 40.9 fL (36.4-46.3); Red Blood Count 5.00 Miln/mm3 (4.00-5.20); White Blood Count 9.3 Thou/mm3 (3.6-11.0)
[2024-10-04 07:02] LABS: Alanine Aminotransferase 20 U/L (10-49); Albumin, Serum 4.5 gm/dL (3.5-5.0); Albumin/Globulin Ratio 1.9 (1.2-2.2); Alkaline Phosphatase 46 U/L (46-116); Anion Gap 12 (7-16); Aspartate Amino Transferase 25 U/L (0-34); BUN/Creatinine Ratio 16 Ratio (12-20); Bilirubin,Total 0.5 mg/dL (0.3-1.2); Blood Urea Nitrogen 11 mg/dL (9-23); Calcium 10.2 mg/dL (8.3-10.6); Calcium (Corrected) 10.2 mg/dL (8.5-10.1); Carbon Dioxide 25.0 mMol/L (20.0-31.0); Chloride 103 mMol/L (98-107); Creatinine (Component) 0.7 mg/dL (0.6-1.3); Estimated Creatinine Clearance 117.5 mL/min (>60); Globulin 2.4 gm/dL (2.3-3.5); Glucose 106 mg/dL (74-106); Magnesium 2.0 mg/dL (1.6-2.6); Osmolality,Calculated 278 (275-295); Phosphorous 4.0 mg/dL (2.4-5.1); Potassium 3.9 mMol/L (3.4-5.1); Sodium 140 mMol/L (136-145); Total Protein 6.9 gm/dL (5.7-8.2); eGFR > 60 See Note
--- NOTE | 2024-10-04 07:38 | PC.NURSE ---
DR. SCOTT MADE AWARE OF PATIENTS BLOOD PRESSURE 182/100 HR 74, PATIENT UPGRADED TO TELE, AND ORDERS PUT IN.
--- NOTE | 2024-10-04 07:53 | PC.NURSE ---
REPORT GIVEN TO NIC DAMIAN. PHARMACY CALLED TO BRING LABETALOL UP TO FLOOR.
[2024-10-04] MEDS: LABETALOL INJ 5 MG/ML VIAL 20 ML 10 MG IVP (08:43)
[2024-10-04] MEDS: LOSARTAN POTASSIUM 25 MG TABLET 100 MG PO (08:44)
[2024-10-04] MEDS: ENOXAPARIN SOD INJ 40 MG/0.4 ML SYRINGE SC (08:45)
--- NOTE | 2024-10-04 14:50 | ESPR_ITS ---
Documentation for date of: 10/04/24 Subjective Subjective Interval history: Patient examined bedside in no distress, but does talk rapidly and is fidgeting. Last night felt like she had restless leg syndrome but her. She also reports no symptoms of HTN such as ringing in her ears, blood in urine, headaches, visual changes. Exam Vital Signs Temp Pulse Resp BP Pulse Ox O2 Del Method FiO2 97.1 F 80 17 148/95 H 98 Room Air 45 10/04/24 12:00 10/04/24 12:10/04/24 12:10/04/24 12:10/04/24 12:10/04/24 12:10/03/24 12:00 Narrative Exam General: The patient is not in acute distress and is fidgeting in her bed. Her cheeks and upper neck appear flushed. HEENT: Normocephalic, atraumatic. No scleral icterus or conjunctival pallor. Mucous membranes are moist. Lungs: Clear to auscultation bilaterally. No wheezes or crackles. Cardiovascular: Normal S1/S2 heart sounds. No murmurs or rubs. Abdomen: Soft, non-tender, non-distended, with bowel sounds present in all four quadrants. Extremities: No deformity, edema, lesions, cyanosis, or clubbing. Radial and dorsalis pedis pulses are 2+ bilaterally, with the exception of old scars on the right ankle. Skin: No rashes or other abnormalities. Neurological: Alert and oriented to person, place, and time. No gross neurological deficits. Motor and sensory function are grossly intact in both upper and lower extremities. Psychiatric: Mood and affect are appropriate. Objective Labs 10/05/24 04:59 10/05/24 04:59 Labs: Laboratory Results - last 24 hr 10/04/24 05:16 WBC 9.3 RBC 5.00 Hgb 14.5 Hct 43.9 MCV 88 MCH 29.0 MCHC 33.0 RDW Std Deviation 40.9 Plt Count 282 Neut % (Auto) 66 Lymph % (Auto) 27 [place] % (Auto) 7 Eos % (Auto) 0 Baso % (Auto) 0 Neut # (Auto) 6.1 Lymph # (Auto) 2.5 [place] # (Auto) 0.6 Eos # (Auto) 0.0 Baso # (Auto) 0.0 Immature Gran # (Auto) 0.03 H Absolute Nucleated RBC 0.00 Immature Gran % 0 Nucleated RBC % 0 Sodium 140 Potassium 3.9 D Chloride 103 Carbon Dioxide 25.0 Anion Gap 12 BUN 11 Creatinine 0.7 Estim Creat Clear Calc 117.5 eGFR > 60 BUN/Creatinine Ratio 16 Glucose 106 Calculated Osmolality 278 Calcium 10.2 Corrected Calcium 10.2 H Phosphorus 4.0 Magnesium 2.0 Total Bilirubin 0.5 AST 25 ALT 20 Alkaline Phosphatase 46 Total Protein 6.9 Albumin 4.5 Globulin 2.4 Albumin/Globulin Ratio 1.9 Quality Measures Quality Measures none Assessment & Plan Assessment Current Active Medications: Generic Name Dose Route Start Last Admin Trade Name Freq PRN Reason Stop Dose Admin Acetaminophen 650 mg 10/02/24 20:43 Acetaminophen 325 Mg Tablet PO 11/01/24 20:42 Q6H PRN Fever >100.4 or Pain 1-3 Amlodipine Besylate 10 mg 10/04/24 09:00 10/04/24 08:45 Amlodipine Besylate 5 Mg Tablet PO 11/03/24 08:59 10 mg QDAY DOM Administration Clonidine 0.1 mg 10/04/24 21:00 Clonidine Hcl 0.1 Mg Tablet PO 11/03/24 20:59 BID DOM Enoxaparin Sodium 40 mg 10/04/24 09:00 10/04/24 08:45 Enoxaparin Sod Inj 40 Mg/0.4 Ml Syringe SC 10/18/24 08:59 40 mg QDAY DOM Administration Gabapentin 300 mg 10/04/24 19:00 Gabapentin 100 Mg Capsule PO 11/03/24 18:59 QDAY DOM Hydralazine HCl 25 mg 10/03/24 15:17 10/04/24 05:00 Hydralazine Hcl 25 Mg Tablet PO 11/02/24 21:59 25 mg TID PRN Administration SBP > 160 Hydrochlorothiazide 25 mg 10/04/24 09:00 10/04/24 08:45 Hydrochlorothiazide 12.5 Mg Capsule PO 11/03/24 08:59 25 mg QDAY DOM Administration Labetalol HCl 10 mg 10/04/24 08:47 Labetalol Inj 5 Mg/Ml Vial 20 Ml IVP 11/03/24 08:46 Q2H PRN SBP above 180 Losartan Potassium 100 mg 10/04/24 09:00 10/04/24 08:44 Losartan Potassium 25 Mg Tablet PO 11/03/24 08:59 100 mg QDAY DOM Administration Ondansetron HCl 4 mg 10/02/24 20:43 Ondansetron Inj 2 Mg/Ml Inj 2 Ml IVP 11/01/24 20:42 Q6H PRN NAUSEA OR VOMITING Protocol Plan Summary: Patient is a 39-year-old female with past medical history significant for uncontrolled hypertension admitted to ICU for management of hypertensive urgency, has now been downgraded to floors for hypertensive work up. Reports no HTN symptoms or withdrawal other than increased fidgeting and potential RLS. BPs have remained lowered 148/95. #Hypertensive urgency The patient presented with a blood pressure of 218/113 mmHg. She reports taking her home nifedipine only once, the day of admission. The patient denies symptoms of headache, chest pain, dizziness, or blurry vision, which suggests no signs of end-organ damage. She has also been self-weaning off fentanyl pills, decreasing from small pills daily to one small pill in the last six weeks. Her facial flushing, which she noticed after taking nifedipine. She does have baseline redness in her cheeks and neck. Will monitor overnight without medication changes to evaluate if underlying hypertensive etiology or withdrawal HTN. 10/04 BPs around 140s/90s. Plan: - Nicardipine drip was discontinued - She received a one-time dose of hydrochlorothiazide 25 mg and lisinopril 20 mg, and her blood pressure improved. - Amlodipine 10 mg daily - Clonidine 0.1 mg BID -Monitor for rebound HTN - Hydrochlorothiazide 25 mg daily - Losartan 100 mg daily - Hydralazine 25 mg TID PRN - Labetalol 10 mg IV Q2H PRN - Patient was counseled on the importance of medication compliance for her blood pressure, maintaining a low-salt diet, and increasing her activity level. - A resistant hypertension workup should be considered if her blood pressure remains elevated on these three antihypertensive medications. #Fentanyl use disorder #Likely withdrawal anxiety from fent #RLS The patient reports a two-year history of daily fentanyl use, which began after she was unable to wean off of as-needed Vicodin following previous right ankle surgeries. Her last dose of fentanyl was 10/02 morning at 10:00. Her urine analysis (UA) was positive for fentanyl. Today she reports a desire to walk around and restlessness, Ativan helped with her anxiety. Is agreeable to FUP with a PCP for help with Fentanyl abstinence. Plan: - The patient would benefit from a referral to a rehabilitation program upon discharge to assist with resources and medication management for withdrawal symptoms. - Monitor closely for any signs or symptoms of opiate withdrawal. - Ativan PO for signs of w/drawal - FRANSISCO 300mg QD at night with meals for withdrawal symptoms and RLS. Health Maintenance: DVT prophylaxis: ENOXAPARIN Diet: Cardiac Lines: PIV CODE STATUS: Full code Disposition: Med/surg Case discussed and patient seen with my attending Dr. Tru Nobles MD PGY-1 Attending Provider Attestation/Addendum Patient seen and examined at bedside with resident. Agree with assessment and plan as dictated above. Will begin clonidine today to assist with both blood pressure and withdrawal. Discussion had with patient regarding establishing primary care and obtaining close followup with primary care for secondary hypertension workup and addiction assistance Chago Ott MD
[2024-10-04] MEDS: GABAPENTIN 300 MG CAPSULE PO (18:42)
[2024-10-04 20:42] LABS: Parathyroid Hormone Intact 46.8 pg/ml (18.5-88.0)
[2024-10-05] VITALS (8 sets, daily range): BP systolic 150–166; BP diastolic 92–100; PULSE 62–77; RESP 18–20; TEMP 36.3–36.7; O2SAT 99
[2024-10-05 06:19] LABS: Basophils # (Auto) 0.1 Thou/mm3 (0.0-0.2); Basophils % (Auto) 1 % (0-2.5); Eosinophils # (Auto) 0.0 Thou/mm3 (0.0-0.5); Eosinophils % (Auto) 0 % (0-10); Hematocrit 44.9 % (36.0-46.0); Hemoglobin 14.9 g/dL (12.0-16.0); Immature Granulocytes Auto 0.03 Thou/mm3 (0.00-0.00); Lymphocytes # (Auto) 3.3 Thou/mm3 (1.0-4.8); Lymphocytes % (Auto) 33 % (10-50); Mean Corpuscular HGB Conc 33.2 g/dl (31.0-37.0); Mean Corpuscular Hemoglobin 29.2 pg (25.0-35.0); Mean Corpuscular Volume 88 fL (80-100); Monocytes # (Auto) 0.7 Thou/mm3 (0.0-0.8); Monocytes % (Auto) 7 % (0-12); Neutrophils # (Auto) 6.0 Thou/mm3 (1.8-7.7); Neutrophils % (Auto) 59 % (37-80); Nucleated Red Blood Cell # 0.00 Thou/mm3 (0.00-0.00); Nucleated Red Blood Cell % 0 /100 WBC (0); Platelet Count 277 Thou/mm3 (140-440); RDW Standard Deviation 41.2 fL (36.4-46.3); Red Blood Count 5.11 Miln/mm3 (4.00-5.20); White Blood Count 10.1 Thou/mm3 (3.6-11.0)
[2024-10-05 06:37] LABS: Alanine Aminotransferase 25 U/L (10-49); Albumin, Serum 4.4 gm/dL (3.5-5.0); Albumin/Globulin Ratio 1.9 (1.2-2.2); Alkaline Phosphatase 45 U/L (46-116); Anion Gap 12 (7-16); Aspartate Amino Transferase 27 U/L (0-34); BUN/Creatinine Ratio 15 Ratio (12-20); Bilirubin,Total 0.5 mg/dL (0.3-1.2); Blood Urea Nitrogen 15 mg/dL (9-23); Calcium 10.1 mg/dL (8.3-10.6); Calcium (Corrected) 10.1 mg/dL (8.5-10.1); Carbon Dioxide 26.0 mMol/L (20.0-31.0); Chloride 101 mMol/L (98-107); Creatinine (Component) 1.0 mg/dL (0.6-1.3); Estimated Creatinine Clearance 82.2 mL/min (>60); Globulin 2.3 gm/dL (2.3-3.5); Glucose 106 mg/dL (74-106); Magnesium 1.8 mg/dL (1.6-2.6); Osmolality,Calculated 278 (275-295); Phosphorous 5.4 mg/dL (2.4-5.1); Potassium 3.9 mMol/L (3.4-5.1); Sodium 139 mMol/L (136-145); Total Protein 6.7 gm/dL (5.7-8.2); eGFR > 60 See Note
[2024-10-05] MEDS: LOSARTAN POTASSIUM 25 MG TABLET 100 MG PO (09:12)
[2024-10-05] MEDS: GABAPENTIN 300 MG CAPSULE PO (09:13)
[2024-10-05] MEDS: ENOXAPARIN SOD INJ 40 MG/0.4 ML SYRINGE SC (09:13)
--- NOTE | 2024-10-05 19:20 | ESDS_ITS ---
<Statement entered by Jarocho Landrum MD - 10/05/24 21:12> Patient was seen and examined at bedside. Patient was admitted for hypertension urgency most likely secondary to fentanyl withdrawal versus whitecoat syndrome. Patient today deemed to be clinically stable to be discharged on hydrochlorothiazide, clonidine 0.1 mg 3 times daily, amlodipine 10 mg p.o. with strict follow-up with medical provider. special services supervisor were consulted and they provided the patient with resources to help with her addiction. - Patient's plan and care discussed with my attending, Dr. Lor Landrum MD Internal Medicine PGY-3 Planned Discharge Date 10/05/24 DS: Providers Provider Date of admission: 10/02/24 21:03 Primary care physician: Medardo Don MD Admitting Provider: Hugh Wood MD Attending Provider on Admission: Coy Horowitz MD Attending Provider on DC: Dr. Horowitz Discharging Provider: Dr. Horowitz DS: Diagnosis Problem List Completed Was Problem List Reviewed/Reconciled?: Yes Hospital Course Hospital Course Hospital course: Patient is a 39-year-old female with past medical history significant for uncontrolled hypertension admitted to ICU for management of hypertensive urgenc y. In the ED patient was given IV 40 mg of hydralazine, and clonidine 0.1 mg p.o. UA positive for leukocyte esterase, 3+ blood and 1+ ketones, most likely due to menstrual period. Patient was started on IV nicardipine drip and admitted to ICU for further management In the hospital patient was admitted to the ICU hypertensive urgency without signs of end organ damage. Hydaraline, HCTZ, amlodipine and losartan were given for BP control. Once BP stabilized she was downgraded to tele and given clonidine BID for HTN and lolly for withdrawal. Her BPs remained stable 140s-150s systolic and she was encouraged to follow up outpatient with a PCP. Discharge Instructions: Follow-up with your PCP within 1 week I am prescribing you 4 blood pressure medicines, Amlodipine, Clonidine, Hydrochlorothiazide, and Losartan. Take as prescribed Continue using blood pressure cuff you have at home and keep record of the read to be discussed with your provider. Follow up with us at the [facility] within one week Take your medicines as prescribed AVOID USING ALL SUBSTANCES INCLUDING FENTANYL Return to ED if your symptoms worsen or return #Hypertensive urgency #Fentanyl use disorder #Likely withdrawal anxiety from fent #RLS Patient's plan and care discussed with my attending, Dr. Horowitz, and supervising residents Jarocho Landrum MD, and MD Chadwick Salcido MD Internal Medicine PGY-1 Time Spent with Patient Time attestation: Total time spent providing and/or coordinating discharge services: Time spent: Greater than 30 minutes Exam Vital Signs Temp Pulse Resp BP Pulse Ox O2 Del Method FiO2 97.8 F 69 18 166/100 H 99 Room Air 45 10/05/24 08:09 10/05/24 09:13 10/05/24 08:09 10/05/24 09:13 10/05/24 08:09 10/05/24 08:09 10/03/24 12:00 Narrative Exam General: The patient is not in acute distress and is fidgeting in her bed. Her cheeks and upper neck appear flushed. HEENT: Normocephalic, atraumatic. No scleral icterus or conjunctival pallor. Mucous membranes are moist. Lungs: Clear to auscultation bilaterally. No wheezes or crackles. Cardiovascular: Normal S1/S2 heart sounds. No murmurs or rubs. Abdomen: Soft, non-tender, non-distended, with bowel sounds present in all four quadrants. Extremities: No deformity, edema, lesions, cyanosis, or clubbing. Radial and dorsalis pedis pulses are 2+ bilaterally, with the exception of old scars on the right ankle. Skin: No rashes or other abnormalities. Neurological: Alert and oriented to person, place, and time. No gross neurological deficits. Motor and sensory function are grossly intact in both upper and lower extremities. Psychiatric: Mood and affect are appropriate. Discharge Plan Plan Patient Disposition: HOME (Self Care) Patient condition on transfer: Stable Care Plan Goals: Discharge instructions Follow-up with your PCP within 1 week I am prescribing you 4 blood pressure medicines, Amlodipine, Clonidine, Hydrochlorothiazide, and Losartan. Take as prescribed Continue using blood pressure cuff you have at home and keep record of the read to be discussed with your provider. Follow up with us at the [facility] within one week Take your medicines as prescribed AVOID USING ALL SUBSTANCES INCLUDING FENTANYL Return to ED if your symptoms worsen or return Prescriptions/Referrals Prescriptions/Med Rec: New hydrochlorothiazide 25 mg tablet 25 mg PO QDAY 30 Days Qty: 30 0RF Rx Instructions: Take one tablet by mouth every day amlodipine 10 mg tablet 10 mg PO QDAY 30 Days Qty: 30 0RF Rx Instructions: Take one tablet by mouth every day losartan 100 mg tablet 100 mg PO QDAY 30 Days Qty: 30 0RF Rx Instructions: Take one tablet by mouth every day clonidine HCl 0.1 mg tablet 0.1 mg PO TID 30 Days Qty: 90 0RF Rx Instructions: Take one tablet by mouth three times a day Discontinued nifedipine [Procardia XL] 30 mg tablet extended release 24hr 30 mg PO QDAY Qty: 30 0RF Referrals: [facility] [Outside] Medardo Don MD [Primary Care Provider] - Patient/Caregiver Discharge Instructions Discharge Activity: activity as tolerated Education Materials: Checking Your Own Blood Pressure, Controlling High Blood Pressure, Your High Blood Pressure Risk Factors, Calcium Channel Blockers Dc, ED Hypertension, New (Begin Treatment) Print Language: Khmer Stand Alone Forms: Margarita Award Info., Patient Portal Info Letter Discharge Order Discharge Orders: Discharge (Routine); Ordered 10/05/24 Ordered By: Shannan Damon Quality Discharge Quality Measures VTE prophylaxis Attestestation MD Attestation I have examined the patient, reviewed labs and imaging findings, discussed the case with the resident(s), and reviewed entered orders. I agree with the plan of care as outlined in this note. Time Spent: [address] Lor MD
== END 2024-10-05 11:50 | disposition home or self-care (01) | DRG 305 ==
LOC: SERX 18:32 → SERHOLD 21:06 → S2SX 10-03 08:54 → S3SX 10-03 17:14
PROVIDERS: Registered Nurse General Practice; Student in an Organized Health Care Education/Training Program; Admitting Provider Internal Medicine; Emergency Provider Family Medicine; PCP Family Medicine; Visit Provider Student in an Organized Health Care Education/Training Program
DX: I16.0 Hypertensive urgency (principal); F11.93 Opioid use, unspecified with withdrawal; I10 Essential (primary) hypertension; G25.81 Restless legs syndrome; F41.9 Anxiety disorder, unspecified; F17.210 Nicotine dependence, cigarettes, uncomplicated; Z79.891 Long term (current) use of opiate analgesic; Z79.899 Other long term (current) drug therapy; Z88.0 Allergy status to penicillin; Z88.8 Allergy status to other drugs, medicaments and biological substances
CPT/HCPCS: 36415; 76770; 80053; 80307; 81001; 83615; 83735; 83880; 83970; 84100; 84439; 84443; 84484; 85025; 85610; 85730; 87081; 93005; 93225; 96372; 96374; 96376; 99284; J1644; J1650; J2404; J3475; J3490; A9270; J1920

== ENCOUNTER 2024-10-21 17:37 | Emergency (ER) | payer BC, SELFPAY ==
[2024-10-21 17:46] VITALS: BP 185/133; PULSE 78; RESP 16; TEMP 36.8; O2SAT 100; BMI 29.8
[2024-10-21 18:52] LABS: Basophils # (Auto) 0.0 Thou/mm3 (0.0-0.2); Basophils % (Auto) 0 % (0-2.5); Eosinophils # (Auto) 0.0 Thou/mm3 (0.0-0.5); Eosinophils % (Auto) 0 % (0-10); Hematocrit 43.2 % (36.0-46.0); Hemoglobin 14.7 g/dL (12.0-16.0); Immature Granulocytes Auto 0.02 Thou/mm3 (0.00-0.00); Lymphocytes # (Auto) 2.1 Thou/mm3 (1.0-4.8); Lymphocytes % (Auto) 23 % (10-50); Mean Corpuscular HGB Conc 34.0 g/dl (31.0-37.0); Mean Corpuscular Hemoglobin 29.0 pg (25.0-35.0); Mean Corpuscular Volume 85 fL (80-100); Monocytes # (Auto) 0.5 Thou/mm3 (0.0-0.8); Monocytes % (Auto) 5 % (0-12); Neutrophils # (Auto) 6.4 Thou/mm3 (1.8-7.7); Neutrophils % (Auto) 71 % (37-80); Nucleated Red Blood Cell # 0.00 Thou/mm3 (0.00-0.00); Nucleated Red Blood Cell % 0 /100 WBC (0); Platelet Count 286 Thou/mm3 (140-440); RDW Standard Deviation 37.2 fL (36.4-46.3); Red Blood Count 5.07 Miln/mm3 (4.00-5.20); White Blood Count 9.0 Thou/mm3 (3.6-11.0)
[2024-10-21 19:11] LABS: Anion Gap 8 (7-16); BUN/Creatinine Ratio 11 Ratio (12-20); Blood Urea Nitrogen 8 mg/dL (9-23); Calcium 10.0 mg/dL (8.3-10.6); Carbon Dioxide 27.4 mMol/L (20.0-31.0); Chloride 103 mMol/L (98-107); Creatinine (Component) 0.7 mg/dL (0.6-1.3); Estimated Creatinine Clearance 116.6 mL/min (>60); Glucose 100 mg/dL (74-106); Osmolality,Calculated 273 (275-295); Potassium 4.3 mMol/L (3.4-5.1); Sodium 138 mMol/L (136-145); eGFR > 60 See Note
[2024-10-21 19:15] LABS: Thyroid Stimulating Hormone 1.02 uIU/mL (0.55-4.78)
[2024-10-21 19:46] LABS: Free T3 3.1 pg/mL (2.3-4.2)
[2024-10-21 20:11] LABS: Collection Type, Urine Clean Catch
[2024-10-21 20:20] LABS: Bacteria,Urine Rare; Bilirubin,Urine Negative (Negative); Blood,Urine 2+ (Negative); Clarity,Urine Clear (Clear/Hazy); Color,Urine Colorless (Lt Yel-Yel); Culture Indicated,Urine Not Indicated; Glucose, Urine Negative (Negative); Ketones,Urine Negative (Negative); Leukocyte Esterase,Urine Negative (Negative); Nitrite,Urine Negative (Negative); PH,Urine 6.5 (5.0-7.0); Protein,Urine Negative (Neg - Trace); RBC,Urine 20 /hpf (0-3); Specific Gravity,Urine 1.007 (1.001-1.035); Squamous Epithelial Cell,Urine 1 /hpf (0-5); Urobilinogen,Urine Negative mg/dL (0.0-1.0); WBC,Urine 3 /hpf (0-5)
--- NOTE | 2024-10-21 20:42 | PD.EDWEAK ---
ED Weakness RME/HPI General Chief complaint: Weakness Stated complaint: NO ENERGY Time Seen by Provider: 10/21/24 18:02 Arrival date/time: 10/21/24 17:37 RME / HPI RME / HPI Narrative: See [facility] for Dr. Rodarte's HPI documentation. Related Data Previous Rx's ?Medication ?Instructions ?Recorded amlodipine 10 mg tablet 10 mg PO QDAY 1 month #30 tabs 10/05/24 clonidine HCl 0.1 mg tablet 0.1 mg PO TID 1 month #90 tabs 10/05/24 hydrochlorothiazide 25 mg tablet 25 mg PO QDAY 1 month #30 tabs 10/05/24 losartan 100 mg tablet 100 mg PO QDAY 1 month #30 tabs 10/05/24 Allergies Allergy/AdvReac Type Severity Reaction Status Date / Time Penicillins Allergy Mild Rash Verified 10/02/24 09:46 povidone Allergy Mild BLISTERS Verified 10/02/24 09:46 Review of Systems Review of Systems Systems Reviewed: All systems reviewed, normal except as documented Past Medical History Past Medical History CARDIAC: Positive Hypertension; Negative Congestive Heart Failure RESPIRATORY: Negative Chronic Obstructive Pulmonary Disease (COPD) GENITOURINARY: Negative Renal Disease ENDOCRINE: Negative Diabetes Mellitus Type 1 or Diabetes Mellitus Type 2 Family History FAMILY HISTORY: Positive Family Cardiac Disorders and Family Cancer Social History SMOKING STATUS: Former smoker ED Exam Narrative Physical exam: See [facility] for Dr. Rodarte's physical exam documentation. Course Quality Measures none Orders Category Date Time Status BMP [Basic Metabolic Panel] Stat Lab 10/21/24 18:30 Completed CBC Stat Lab 10/21/24 18:30 Completed Free T3 Stat Lab 10/21/24 18:30 Completed TSH [Thyroid Stimulating Hormone] Stat Lab 10/21/24 18:30 Completed UA, C/S IF [Urinalysis, C/S if Indicated] Stat Lab 10/21/24 20:09 Completed Vital Signs Vital signs: Vital Signs Temperature 98.2 F 10/21/24 17:46 Pulse Rate 78 10/21/24 17:46 Respiratory Rate 16 10/21/24 17:46 Blood Pressure 185/133 H 10/21/24 17:46 Pulse Oximetry (%) 100 10/21/24 17:46 Oxygen Delivery Method Room Air 10/21/24 17:46 Weakness [facility] Narrative [facility] Narrative:: This section includes all my notes and documentations, including HPI, PE, and ED course. Timbo Rodarte MD HPI: 39yo female with several month history of unusual malaise and fatigue. Eating normally. No vomiting or diarrhea. Seems to be worse with menstruation. No chest pain or abdominal pain. No other complaints. ROS: All negative except as documented in HPI. Physical Exam: General:? Alert and oriented.? No acute distress.?? Eyes:? Conjunctivae and lids clear.? EOMI.? PERRL. ENT:? No nasal congestion.? Neck:? Supple.? No carotid bruit.? No JVD.?? Heart:? RRR.? Lungs:? No respiratory distress.? Good air movement.? No rhonchi, wheezing, rales.?? Abdomen:? Soft and nontender.? Normal bowel sounds.? No distension.? No rebound or guarding.?? Back:? No CVA tenderness.?? Legs:? No clubbing, cyanosis, edema.? Skin:? Warm and dry.?? Neuro:? Alert and oriented X 3.? Cranial Nerves II-XII grossly intact.? No peripheral motor deficits. I reviewed all diagnostic test results. Blood tests and urine tests are unremarkable. At this point, diagnoses include generalized weakness with unclear etiology. Recommended more outpatient workup. Based on my best medical judgment, made decision no further evaluation or treatment indicated at this time. Patient understands and agrees to the discharge instructions customized and printed, see below. Discharge Instructions from Dr. Rodarte printed for you: 1. After extensive evaluation, exact cause of your generalized weakness was not determined. But there is no emergency. 2. See a private doctor on 11/12 for recheck and further care. Ask to help you find the cause/treatment of your symptoms. To make sure there is no serious underlying heart condition, ask to help you get more tests for your heart that cannot be done here in the ER. Such as Holter Monitor (cardiac monitoring at home from a day to even a month), heart stress test (on treadmill or with medication), echocardiogram (imaging of your heart structures), heart catherization (checking for blockages in your heart arteries), and a referral to see a Information Technology Instructor. Ask for referral to see other specialists as needed. 3. Seek immediate medical care with worsening or with any concerns. Timbo Rodarte MD Patient data External records reviewed:: [facility] previous records (Per chart review, patient was admitted here on 10/02/24 for elevated blood pressure reading.) Clinical information provided by:: patient Social determinants that could affect healthcare access:: none Patient has the following chronic illnesses:: HTN How is presenting disease/condition affected by chronic disease/condition?: uneffected by Evaluation data The following diagnostics were reviewed and interpreted by me:: lab results Lab and/or radiology exams considered but not ordered:: none Interpretation Summary: I reviewed all diagnostic test results. Blood tests and urine tests are unremarkable. Medications / Prescriptions Medications or Prescriptions considered but not ordered:: none Medication administrations:: none Consultations Consultation(s) initiated? (list below): No Diagnosis Weakness Differential Diagnosis: anemia, hypoglycemia and dehydration Most likely diagnosis given after review of the tests above:: Generalized weakness of unclear etiology Admission Indicated Admission indicated?: not indicated Explain why admission is indicated or not indicated:: With no condition needing emergent intervention, there was no indication for admission. Admission Request Was there a request for admission?: No Disposition Plan Disposition Plan: Discharge Discharge Attestation Discharge Attestation: The patient and all family members were given an opportunity to ask questions and understood the discharge instructions. Discharge instructions specifically effects, indications for sooner follow up or return to the emergency department, and the expected course of current diagnosis. Patient condition: Stable Discharge Plan Plan Patient Disposition: HOME (Self Care) Prescriptions/Referrals Prescriptions/Med Rec: No Action hydrochlorothiazide 25 mg tablet 25 mg PO QDAY 30 Days Qty: 30 0RF Rx Instructions: Take one tablet by mouth every day amlodipine 10 mg tablet 10 mg PO QDAY 30 Days Qty: 30 0RF Rx Instructions: Take one tablet by mouth every day losartan 100 mg tablet 100 mg PO QDAY 30 Days Qty: 30 0RF Rx Instructions: Take one tablet by mouth every day clonidine HCl 0.1 mg tablet 0.1 mg PO TID 30 Days Qty: 90 0RF Rx Instructions: Take one tablet by mouth three times a day Referrals: Richar Sotomayor MD [Primary Care Provider] - In 1 week Problem List Clinical Impression: General weakness Patient/Caregiver Discharge Instructions Discharge Activity: activity as tolerated Education Materials: ED Weakness (Uncertain Cause) Additional Instructions: Discharge Instructions from Dr. Rodarte printed for you: 1. After extensive evaluation, exact cause of your generalized weakness was not determined. But there is no emergency. 2. See a private doctor on 11/12 for recheck and further care. Ask to help you find the cause/treatment of your symptoms. To make sure there is no serious underlying heart condition, ask to help you get more tests for your heart that cannot be done here in the ER. Such as Holter Monitor (cardiac monitoring at home from a day to even a month), heart stress test (on treadmill or with medication), echocardiogram (imaging of your heart structures), heart catherization (checking for blockages in your heart arteries), and a referral to see a Information Technology Instructor. Ask for referral to see other specialists as needed. 3. Seek immediate medical care with worsening or with any concerns. Print Language: Swedish Stand Alone Forms: Margarita Award Info., Patient Portal Info Letter
== END 2024-10-21 20:54 | disposition home or self-care (01) ==
PROVIDERS: Physician Assistant; Emergency Provider Emergency Medicine
DX: R53.1 Weakness (principal)
CPT/HCPCS: 36415; 80048; 81001; 84443; 84481; 85025; 99283

== ENCOUNTER 2024-10-23 12:04 | Emergency (ER) | payer BC, SELFPAY ==
[2024-10-23 12:11] VITALS: BP 158/103; PULSE 100; PULSE 118; RESP 19; RESP 20; TEMP 36.7; O2SAT 97; BMI 29.7
--- NOTE | 2024-10-23 12:39 | EKG_ITS ---
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
--- NOTE | 2024-10-23 13:02 | XR_ITS ---
Examination: AP chest single view Technique: AP portable upright chest single view Date and time: October 23, 2024 1321 hours, comparison July 26, 2005 INDICATIONS: Chest pain today. FINDINGS: Normal heart size. Lungs are clear. Moderate osteopenia IMPRESSION: No active disease.
--- NOTE | 2024-10-23 13:03 | EDNOTE_ITS ---
ED Chest Pain RME/HPI General Chief Complaint: Chest Pain Stated Complaint: CHEST PAIN Time Seen by Provider: 10/23/24 12:41 Arrival date/time: 10/23/24 12:04 RME / HPI RME / HPI narrative: 39-year-old female patient with recent diagnosis of hypertensive urgency, currently taking clonidine, hydrochlorothiazide, losartan, came in for evaluation regarding chest discomfort. Has been having chest discomfort for 1 week, severity mild. Patient felt very anxious. Patient denies any shortness of breath denies any other complaints no headache no neck pain. Patient told me that she stopped taking amlodipine and only taking hydrochlorothiazide every other day. Patient also feels very anxious. 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 Related Data Previous Rx's ?Medication ?Instructions ?Recorded amlodipine 10 mg tablet 10 mg PO QDAY 1 month #30 ta bs 10/05/24 clonidine HCl 0.1 mg tablet 0.1 mg PO TID 1 month #90 tabs 10/05/24 hydrochlorothiazide 25 mg tablet 25 mg PO QDAY 1 month #30 tabs 10/05/24 losartan 100 mg tablet 100 mg PO QDAY 1 month #30 t abs 10/05/24 hydroxyzine HCl 50 mg tablet 50 mg PO BID PRN anxiety #30 tabs 10/23/24 Allergies Allergy/AdvReac Type Severity Reaction Status Date / Time Penicillins Allergy Mild Rash Verified 10/23/24 12:19 povidone Allergy Mild BLISTERS Verified 10/23/24 12:19 Review of Systems Review of Systems Narrative Review of Systems: Review of system reviewed and within normal limits except mentioned in HPI ED Exam Narrative Physical exam: VITAL SIGNS: Reviewed. GENERAL APPEARANCE: Alert and interactive, follows commands, no acute distress, HEAD AND FACE: Non-traumatic. ENT: PERRL, pink conjunctivitis, eyelid no trauma, Mucous membrane moist. NECK: Supple, nontender, no nuchal rigidity. CHEST: No tenderness, no crepitus, no paradoxical movement, no retractions. LUNGS: Clear, well ventilated, symmetric, no rales, no wheezing, no ronchi, no stridor, good breath sounds bilaterally. HEART: Regular rate, regular rhythm, no murmur, no gallops. ABDOMEN: Soft, positive bowel sounds, nondistended, no guarding, nontender, no rebound, no masses, RECTAL: Deferred. GENITAL: Deferred. NEUROLOGICAL: Gross motor function intact sensory function intact, Appropriate for age. MUSCULOSKELETAL: low back nontender, full range of motion. EXTREMITIES: Nontender, full range of motion. SKIN: Color pink, dry, no rash, no lacerations, no abrasions, no contusions. LYMPHATICS: Deferred. Course Quality Measures none Orders Category Date Time Status EKG (ED ONLY) *Do not use* NOW Care 10/23/24 12:39 Completed EKG (ED Only) Stat Exams 10/23/24 12:39 Draft XR chest 1V Stat Exams 10/23/24 13:02 Completed CBC Stat Lab 10/23/24 13:41 Completed Comprehensive Metabolic Panel Stat Lab 10/23/24 13:41 Completed Drug Screen,Urine Stat Lab 10/23/24 14:18 Completed Partial Thromboplastin Time Stat Lab 10/23/24 13:41 Completed Troponin I Stat Lab 10/23/24 13:41 Completed Urinalysis, C/S if Indicated Stat Lab 10/23/24 14:18 Completed cloNIDine HCL [Catapres] Med 10/23/24 13:02 Discontinued 0.1 mg PO X1 ONE Vital Signs Vital signs: Vital Signs Temperature 98.0 F 10/23/24 12:11 Pulse Rate 100 10/23/24 12:11 Respiratory Rate 19 10/23/24 12:11 Blood Pressure 158/103 H 10/23/24 12:11 Pulse Oximetry (%) 97 10/23/24 12:11 Oxygen Delivery Method Room Air 10/23/24 12:11 Chest Pain MDM Narrative MDM Narrative:: 39-year-old female patient with recent diagnosis of hypertensive urgency, currently taking clonidine, hydrochlorothiazide, losartan, came in for evaluation regarding chest discomfort. Has been having chest discomfort for 1 week, severity mild. Patient felt very anxious. Patient denies any shortness of breath denies any other complaints no headache no neck pain. Patient told me that she stopped taking amlodipine and only taking hydrochlorothiazide every other day. Patient also feels very anxious. 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 EKG showed normal sinus rhythm, ventricular rate of 84 bpm, no ST segment elevation or depression noted. Patient's cardiac workup today came back normal. Repeat troponin is not needed. Patient is having chest discomfort for more than a week. Patient blood pressure could be related to her anxiety or so. Patient was advised to continue taking the blood pressure medication that she has right now. Patient will see her PCP in 3 days. She is stable for discharge home. Patient data External records reviewed:: None Clinical information provided by:: patient Social determinants that could affect healthcare access:: none Patient has the following chronic illnesses:: Hypertension How is presenting disease/condition affected by chronic disease/condition?: exacerbated by Evaluation data The following diagnostics were reviewed and interpreted by me:: lab results, radiology exam(s) and EKG tracing(s) Lab and/or radiology exams considered but not ordered:: None Interpretation Summary: See results MDM Medications / Prescriptions Medications or Prescriptions considered but not ordered:: None Medication administrations:: Medication Administration History Discontinued Medications Clonidine (Clonidine Hcl 0.1 Mg Tablet) 0.1 mg PO X1 ONE Stop: 10/23/24 13:03 Last Admin: 10/23/24 13:27 Dose: 0.1 mg Documented By: TM Clonidine Consultations Consultation(s) initiated? (list below): No Diagnosis Chest Pain Differential Diagnosis: other (Hypertension, anxiety) Most likely diagnosis given after review of the tests above:: Chest pain, anxiety, hypertension Admission Indicated Admission indicated?: not indicated Admission Request Was there a request for admission?: No Disposition Plan Disposition Plan: Discharge Discharge Attestation Discharge Attestation: The patient was given an opportunity to ask questions and understood the discharge instructions. Discharge instructions specifically effects, indications for sooner follow up or return to the emergency department, and the expected course of current diagnosis. Patient condition: Stable Discharge Plan Plan Patient Disposition: HOME (Self Care) Discharge Disposition comment: Stable Prescriptions/Referrals Prescriptions/Med Rec: New hydroxyzine HCl 50 mg tablet 50 mg PO BID PRN (Reason: anxiety) Qty: 30 0RF No Action hydrochlorothiazide 25 mg tablet 25 mg PO QDAY 30 Days Qty: 30 0RF Rx Instructions: Take one tablet by mouth every day amlodipine 10 mg tablet 10 mg PO QDAY 30 Days Qty: 30 0RF Rx Instructions: Take one tablet by mouth every day losartan 100 mg tablet 100 mg PO QDAY 30 Days Qty: 30 0RF Rx Instructions: Take one tablet by mouth every day clonidine HCl 0.1 mg tablet 0.1 mg PO TID 30 Days Qty: 90 0RF Rx Instructions: Take one tablet by mouth three times a day Referrals: No Primary/Family,Physician [Primary Care Provider] - In 1 week Problem List Clinical Impression: Chest pain, Hypertension, Anxiety Patient/Caregiver Discharge Instructions Discharge Activity: activity as tolerated Education Materials: ED Hypertension, Established Additional Instructions: Thank you for the opportunity for serving you today. You are stable for discharged . You are advised to: Follow-up with your PCP in 1 to 2 days Return to ED for worsening of symptoms Increase oral fluids Take medication as prescribed Print Language: Turkmen Stand Alone Forms: Margarita Award Info., Patient Portal Info Letter PA/DIGITAL PHOTOGRAPHIC PRINTER Supervising Physician PA/DIGITAL PHOTOGRAPHIC PRINTER Supervising Physician: MD Ramiro
[2024-10-23 13:27] VITALS: BP 154/115; PULSE 100
[2024-10-23 13:51] LABS: Basophils # (Auto) 0.0 Thou/mm3 (0.0-0.2); Basophils % (Auto) 0 % (0-2.5); Eosinophils # (Auto) 0.0 Thou/mm3 (0.0-0.5); Eosinophils % (Auto) 0 % (0-10); Hematocrit 42.8 % (36.0-46.0); Hemoglobin 14.8 g/dL (12.0-16.0); Immature Granulocytes Auto 0.02 Thou/mm3 (0.00-0.00); Lymphocytes # (Auto) 1.5 Thou/mm3 (1.0-4.8); Lymphocytes % (Auto) 20 % (10-50); Mean Corpuscular HGB Conc 34.6 g/dl (31.0-37.0); Mean Corpuscular Hemoglobin 29.0 pg (25.0-35.0); Mean Corpuscular Volume 84 fL (80-100); Monocytes # (Auto) 0.3 Thou/mm3 (0.0-0.8); Monocytes % (Auto) 4 % (0-12); Neutrophils # (Auto) 5.6 Thou/mm3 (1.8-7.7); Neutrophils % (Auto) 75 % (37-80); Nucleated Red Blood Cell # 0.00 Thou/mm3 (0.00-0.00); Nucleated Red Blood Cell % 0 /100 WBC (0); Platelet Count 291 Thou/mm3 (140-440); RDW Standard Deviation 36.4 fL (36.4-46.3); Red Blood Count 5.10 Miln/mm3 (4.00-5.20); White Blood Count 7.5 Thou/mm3 (3.6-11.0)
[2024-10-23 14:08] LABS: Partial Thromboplastin Time 24.3 Seconds (22.0-36.0)
[2024-10-23 14:10] LABS: Alanine Aminotransferase 20 U/L (10-49); Albumin, Serum 4.7 gm/dL (3.5-5.0); Albumin/Globulin Ratio 1.7 (1.2-2.2); Alkaline Phosphatase 54 U/L (46-116); Anion Gap 12 (7-16); Aspartate Amino Transferase 16 U/L (0-34); BUN/Creatinine Ratio 9 Ratio (12-20); Bilirubin,Total 0.7 mg/dL (0.3-1.2); Blood Urea Nitrogen 6 mg/dL (9-23); Calcium 10.3 mg/dL (8.3-10.6); Calcium (Corrected) 10.3 mg/dL (8.5-10.1); Carbon Dioxide 27.0 mMol/L (20.0-31.0); Chloride 102 mMol/L (98-107); Creatinine (Component) 0.7 mg/dL (0.6-1.3); Estimated Creatinine Clearance 116.3 mL/min (>60); Globulin 2.7 gm/dL (2.3-3.5); Glucose 108 mg/dL (74-106); Osmolality,Calculated 279 (275-295); Potassium 4.4 mMol/L (3.4-5.1); Sodium 141 mMol/L (136-145); Total Protein 7.4 gm/dL (5.7-8.2); Troponin I < 0.020 ng/mL (0.0-0.045); eGFR > 60 See Note
[2024-10-23 14:15] VITALS: BP 159/106; PULSE 77; RESP 17; TEMP 36.6; O2SAT 96
[2024-10-23 14:24] LABS: Collection Type, Urine Clean Catch; Squamous Epithelial Cell,Urine 0 /hpf (0-5)
[2024-10-23 14:38] LABS: Amphetamine/Methamp Scrn,U Negative (Negative); Bacteria,Urine Rare; Barbiturate Screen,Urine Negative (Negative); Benzodiazepines Screen,Urine Negative (Negative); Benzoylecgonine Screen, Ur Negative (Negative); Bilirubin,Urine Negative (Negative); Blood,Urine 3+ (Negative); Clarity,Urine Clear (Clear/Hazy); Color,Urine Colorless (Lt Yel-Yel); Culture Indicated,Urine Not Indicated; Fentanyl Screen,Urine Positive (Negative); Glucose, Urine Negative (Negative); Ketones,Urine Negative (Negative); Leukocyte Esterase,Urine Negative (Negative); Nitrite,Urine Negative (Negative); Opiate Screen,Urine Negative (Negative); PH,Urine 7.0 (5.0-7.0); Protein,Urine Negative (Neg - Trace); RBC,Urine 52 /hpf (0-3); Specific Gravity,Urine 1.006 (1.001-1.035); THC Screen,Urine Negative (Negative); Urobilinogen,Urine Negative mg/dL (0.0-1.0); WBC,Urine 2 /hpf (0-5)
== END 2024-10-23 17:50 | disposition home or self-care (01) ==
PROVIDERS: Nurse Practitioner Family; Emergency Provider Family Medicine
DX: R07.89 Other chest pain (principal); I10 Essential (primary) hypertension; F41.9 Anxiety disorder, unspecified; T46.1X6A Underdosing of calcium-channel blockers, initial encounter; T50.2X6A Underdosing of carbonic-anhydrase inhibitors, benzothiadiazides and other diuretics, initial encounter; Z91.148 Patient's other noncompliance with medication regimen for other reason; Z79.899 Other long term (current) drug therapy
CPT/HCPCS: 36415; 71045; 80053; 80307; 81001; 84484; 85025; 85730; 93005; 99284; A9270

== ENCOUNTER 2024-10-26 10:17 | Outpatient (AMB) | payer BC, SELFPAY ==
[2024-10-26 10:33] VITALS: BP 172/129; PULSE 91; RESP 19; TEMP 36.8; O2SAT 99
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
== END 2024-10-26 12:25 | disposition home or self-care (01) ==
LOC: HODAHC 10:17
PROVIDERS: PCP Family Medicine; Referring Provider Family Medicine
DX: I16.0 Hypertensive urgency (principal); I10 Essential (primary) hypertension; F41.9 Anxiety disorder, unspecified; F11.13 Opioid abuse with withdrawal
CPT/HCPCS: 99212; G0463

== ENCOUNTER 2025-02-03 13:11 | Outpatient (AMB) | payer BC, SELFPAY ==
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
[2025-02-03 13:40] VITALS: BP 194/121; PULSE 88; RESP 20; TEMP 36.8; O2SAT 99
== END 2025-02-03 14:33 | disposition home or self-care (01) ==
LOC: HODAHC 13:11
PROVIDERS: Supervising Provider Internal Medicine
DX: F11.23 Opioid dependence with withdrawal (principal); F11.288 Opioid dependence with other opioid-induced disorder
CPT/HCPCS: 99214; G0463